=== PATIENT | female | born 1940 | race Caucasian/White ===

== ENCOUNTER 2019-07-03 11:13 | Emergency (ER) | payer MEDICARE, BC, SELFPAY ==
--- NOTE | 2019-07-03 11:28 | DI.RAD_ITS ---
INDICATION: fall, proximal pain COMPARISON: No exams were available for comparison TECHNIQUE: 2D digital imaging was performed. FINDINGS: There is a mildly displaced fracture involving the surgical neck and tuberosity of the left humerus. There is no evidence of a dislocation. IMPRESSION: Fractures of the proximal humerus as described above.
--- NOTE | 2019-07-03 11:29 | ED.GENADUL_ITS ---
Discharge Plan Disposition Patient Disposition: HOME Condition: Improving Discharge Details Chief Complaint: Orthopedic Clinical Impression: Closed fracture of left proximal humerus Primary Care Provider: Jenny,Local ED Provider: Wilfredo Cordova Home Meds and New Rx's Prescriptions: New hydrocodone-acetaminophen 5-325 mg tablet 1 - 2 tab PO Q6H PRN (Reason: pain) Qty: 10 RF: 0 Continued famotidine 20 mg Tablet 20 mg PO DAILY RF: 0 amlodipine 5 mg Tablet 5 mg PO DAILY RF: 0 pravastatin 20 mg Tablet 20 mg PO QHS RF: 0 acetaminophen [Acetaminophen Extra Strength] 500 mg Tablet 1,000 mg PO Q4H PRNRF: 0 Discharge Instructions Instructions: Proximal Humerus Fracture (ED) Additional Instructions: Please wear sling until seen by orthopedics for recheck. Call the [place] [facility] for a follow-up appointment. Your x-rays reveal an impacted left proximal humerus fracture. May use ibuprofen as needed for pain and/or Tylenol. May use the prescribed hydrocodone if needed for severe/breakthrough pain. Please note the each tablet contains 325 mg of Tylenol. You should not use more than 975 mg of Tylenol every 6 hours. Ice to area to reduce discomfort. Return or see nearest healthcare provider if you develop cold or blue fingertips, numbness or tingling, increasing pain, or any other acute concern. Medical Decision Making 70-year-old female slipped on a [place] onto her her left side with immediate left proximal humerus pain. No numbness, tingling, weakness. She presents for evaluation with an exam that reveals left proximal humerus tenderness but no motor or sensory deficits. No other injury. IV placed, patient given analgesia, referred for x-ray which reveals an impacted proximal humerus fracture with displacement of the greater trochanter. She lives in [place], [place]. She has an orthopedist who follows with at the [facility]. She will be placed in sling, she was consented for the use of narcotic analgesia if needed for severe pain, she was given a copy of her images and will follow-up with the [facility] for recheck. She understands homecare as well as follow-up/return precautions. HPI General Mode of arrival: wheelchair . Date/Time Provider Initiated Documentation: 07/03/19 11:14 . Limitations to Documentation: no limitations . Information obtained by: patient . History of Present Illness 78 year old F presents to the emergency department with the chief complaint of Left arm pain after fall on grass, described as moderate, Quality is described as constant, and is localized to the left and upper extremity. Patient reports no radiation. Patient started experiencing this minute(s) and it has been constant. Rest improves symptom(s), Movement worsens symptoms . Patient notes denies weakness. Patient did receive the following treatments prior to arrival, splint Related Data Home Medications Medication Instructions Recorded Confirmed acetaminophen [Acetaminophen Extra 1,000 mg PO Q4H PRN 07/03/19 07/03/19 Strength] amlodipine 5 mg PO DAILY 07/03/19 07/03/19 famotidine 20 mg PO DAILY 07/03/19 07/03/19 hydrocodone-acetaminophen 1 - 2 tab PO Q6H PRN #10 tab 07/03/19 pravastatin 20 mg PO QHS 07/03/19 07/03/19 Previous Rx's Medication Instructions Recorded hydrocodone-acetaminophen 1 - 2 tab PO Q6H PRN #10 tab 07/03/19 Allergies Allergy/AdvReac Type Severity Reaction Status Date / Time Penicillins Allergy Unverified 07/03/19 11:49 codeine AdvReac Unverified 07/03/19 11:49 Review of Systems Review of Systems Narrative: No numbness or tingling. Denies injury to head/neck/back/chest/abdomen. 6 systems reviewed and otherwise negative. [facility] Social History Smoking/Tobacco Use Status: Never Alcohol Intake: current Alcohol Intake frequency: 0-2 drinks per day Alcohol type: wine Substance use type: does not use Do you feel safe at home: Yes Do you feel safe in your relationship?: Yes Exam Narrative Exam Narrative: GEN: awake, alert, oriented 3. Pleasant, well groomed, interactive. HEAD: Normocephalic, atraumatic ENT: Mucous membranes moist, oropharynx unremarkable, External ear exam unremarkable EYES: PERRL, EOMI NECK: Full ROM, no CHARLINE, no menigismus CHEST/RESP: Nontender, clear to auscultation bilateral, no wheeze/rhonchi/rales CARDIOVASCULAR: RRR, no murmur, rub eric. 2+ Rad pulse bilateral ABDOMEN: Soft, nontender, no mass. +Bowel sounds EXT: Left proximal humerus tenderness to palpation. Arm is held in internal rotation and abduction. Distal motor and sensory testing within normal limits. Range of motion is limited by pain. Neuro: Grossly normal neurologic exam, conversant, interactive. Psych: Speech fluent, thoughts congruent, affect normal
[2019-07-03] MEDS: HYDROmorphone 2 MG/ML VIAL 0.5 MG IVP ×2 (11:36→11:59)
[2019-07-03 11:48] VITALS: PULSE 72; RESP 20; TEMP 36.8; O2SAT 99
[2019-07-03 11:50] VITALS: BP 177/93
--- NOTE | 2019-07-03 11:53 | NUR.NOTE ---
Nursing Note: Rings removed and given to her friends with patient's permission.
[2019-07-03 12:07] LABS: Abs Immature Grans 0.01 k/cumm (0.0-0.09); Absolute Basophil Count 0.03 k/cumm (0.0-0.2); Absolute Eosinophil Count 0.15 k/cumm (0.0-0.7); Absolute Lymphocyte Count 2.01 k/cumm (1.2-3.4); Absolute Monocyte Count 0.62 k/cumm (0.11-0.7); Absolute Neutrophil Count 3.72 k/cumm (1.2-6.7); Basophils % 0.5; Eosinophils % 2.3; HCT 44.3 % (36.0-46.0); HGB 14.7 g/dL (12.0-15.5); Immature Grans % 0.2; Lymphocytes % 30.7; Mean Corp. HGB Concentration 33.2 g/dL (32.0-36.0); Mean Corpuscular Hemoglobin 32.5 pg (27.0-33.0); Mean Corpuscular Volume 97.8 fL (80-95); Monocytes % 9.5; Neutrophils % 56.8; Platelet Count 248 x1000/uL (130-400); RBC 4.53 m/cumm (4.00-5.20); RBC Distribution Width 13.5 % (11.7-14.6); White Blood Cell Count 6.54 k/cumm (4.4-10.8)
[2019-07-03 12:34] LABS: ALT 36 U/L (14-59); AST 24 U/L (15-37); Albumin 3.8 g/dL (3.4-5.0); Alkaline Phosphatase 113 U/L (46-116); Anion Gap 13.6 mmol/L (3-11); BUN 15 mg/dL (7-18); Bilirubin, Total 0.9 mg/dL (0.2-1.0); CO2 22.4 mmol/L (21.0-32.0); Calcium 8.6 mg/dL (8.5-10.1); Chloride 104 mmol/L (98-107); Glucose 121 mg/dL (70-100); Potassium 3.3 mmol/L (3.5-5.1); Sodium 140 mmol/L (136-145); Total Protein 7.6 g/dL (6.4-8.2)
[2019-07-03 12:36] VITALS: BP 159/83; PULSE 72; RESP 16; O2SAT 100
[2019-07-03] MEDS: Ketorolac 15 MG/ML VIAL IVP (12:44)
[2019-07-03] MEDS: HYDROcodone 5/Acetaminophen 325 TAB PO (13:35)
[2019-07-03 13:50] VITALS: BP 147/75; PULSE 72; RESP 20; O2SAT 99
== END 2019-07-03 13:27 | disposition home or self-care (01) ==
LOC: ER 13:56
PROVIDERS: Emergency Provider Emergency Medicine
DX: S42.252A Displaced fracture of greater tuberosity of left humerus, initial encounter for closed fracture (principal); W17.81XA Fall down embankment (hill), initial encounter
CPT/HCPCS: 23620; 80053; 73060; 85025; J1885; L3650